=== PATIENT | female | born 1975 | race Caucasian/White ===

== ENCOUNTER 2016-07-30 13:16 | Emergency (ER) | payer OTHER | END 2016-07-30 13:28 | disposition home or self-care (01) | LOC: CFTX 13:16 | DX: M54.2 Cervicalgia (principal); M54.9 Dorsalgia, unspecified; G89.29 Other chronic pain; F17.200 Nicotine dependence, unspecified, uncomplicated | CPT/HCPCS: 96372; 99283; J1885 ==

== ENCOUNTER → 2016-08-01 20:00 | Emergency (ER) | payer OTHER | END | disposition home or self-care (01) | LOC: CFTX 20:00 | DX: M54.2 Cervicalgia (principal); M54.5 Low back pain; G89.29 Other chronic pain; F17.200 Nicotine dependence, unspecified, uncomplicated | CPT/HCPCS: 99282 ==